=== PATIENT | female | born 1970 | race Caucasian/White ===

== ENCOUNTER 2016-11-17 13:16 | Inpatient (IN) | payer MEDICAID ==
[~2016-11-17 13:16] MED LIST: ARIXTRA10 MG/0.8 SC; ASPIRIN EC325 M1 PO; ASPIRIN325 MG PO; BUDEPRION XL300 MG PO; CLARITIN5 MG; COUMADIN5 MG PO; COUMADIN6 MG PO; DICLOFENAC SODI75 MG PO; DIFLUCAN100 MG PO; DIOVAN HCT 160/1 TA PO; DIOVAN160 M PO; DOXYCYCLINE HY100 MG PO; K-DUR20 ME1 PO; LASIX40 MG PO; LASIX80 MG PO; LEXAPRO20 M1 PO; LEXAPRO20 MG PO; LEXAPRO5 MG; POTASSIUM CHLO10 MEQ; PRENATAL MULTI1 EACH; PRENATAL1 EACH PO; SULFAMYLON453.6 GM TP; WELLBUTRIN; WELLBUTRIN75 M1; WELLBUTRIN75 M1 PO; ZITHROMAX250 MG PO; ZYRTEC10 M1 PO; ZYRTEC10 M7 PO; [UNRECOGNIZED DRUG - OTHER]
[2016-11-17] MEDS ORDERED: NORCO 5-325 TA1 EACH PO (13:58)
[2016-11-17] MEDS ORDERED: DICLOFENAC SODI75 M2 PO (14:00)
[2016-11-17] MEDS ORDERED: LOVENOX60 MG/0.1 SC (14:01)
[2016-11-17] MEDS ORDERED: NYSTATIN15 G1 TP (14:03)
[2016-11-17] MEDS ORDERED: PROTONIX40 M2 PO (14:03)
[2016-11-17] MEDS ORDERED: SENOKOT8.6 M1 PO (14:04)
[2016-11-17] MEDS ORDERED: INVANZ1 GM IV (14:06)
[2016-11-17] MEDS ORDERED: VANCOMYCIN HCL500 MG IV (14:07)
[2016-11-17] MEDS ORDERED: WELLBUTRIN SR150 M2 PO (14:09)
[2016-11-17] MEDS ORDERED: SODIUM CHLOR1 GM/TAB (14:09)
[2016-11-17] MEDS ORDERED: PROVENTIL HFA6.7 G1 IH (14:13)
[2016-11-18 05:39] LABS: BASO % 0.4 % (0-2); EOSINOPHIL ABSOLUTE COUNT 0.2 tho/cmm (0.0-0.7); HCT-HEMATOCRIT 29.6 % (34.0-49.0); HGB-HEMOGLOBIN 8.7 gm/dl (12.0-15.5); IMMATURE GRANULOCYTES ABSOLUTE 0.14 tho/cmm (0-0.03); IMMATURE GRANULOCYTES PERCENT 2.8 % (0-0.3); LYMPH % 17.4 % (20-45); LYMPH ABSOLUTE COUNT 0.9 tho/cmm (0.8-4.5); MCH (MEAN CORPUSCULAR HGB) 26.4 pg (28.0-32.0); MCHC MEAN CORPUSCULAR HGB CONC 29.4 % (32.0-36.0); MCV (MEAN CELL VOLUME) 89.7 fl (82.0-96.0); MEAN PLATELET VOLUME 9.5 cmc (9.4-12.4); MONOCYTE ABSOLUTE COUNT 0.7 tho/cmm (0.0-1.2); NEUTROPHIL ABSOLUTE COUNT 3.2 tho/cmm (1.6-8.0); NEUTROPHIL-AUTOMATED 3.2 tho/cmm (1.6-8.0); NEUTROPHILS % 63.4 % (40-80); PLATELET COUNT 295 tho/cmm (150-450); RED CELL DISTRIBUTION WIDTH 16.3 % (12.4-16.4)
[2016-11-18 06:04] LABS: ALB/GLOB RATIO 0.3 (0.8-2.0); ALKALINE PHOSPHATASE 119 U/L (33-138); ALT/SGPT 23 U/L (12-78); ANION GAP 9 mmol/L (0-20); AST/SGOT 16 U/L (10-40); BILIRUBIN,TOTAL 0.5 mg/dl (0-1.5); BLOOD UREA NITROGEN 12 mg/dl (6-24); CALCIUM 8.2 mg/dl (8.5-10.5); CARBON DIOXIDE-VENOUS 35 mmol/L (22-32); CHLORIDE 100 mmol/l (96-110); CREATININE 1.01 mg/dl (0.50-1.10); GLUCOSE 128 mg/dL (70-110); POTASSIUM 3.5 mmol/L (3.7-5.1); SODIUM 140 mmol/L (135-145); eGFR VALUE FOR BLACK 77 mL/Min
[2016-11-19 05:44] LABS: BASO % 0.2 % (0-2); EOS % 2.6 % (0-7); EOSINOPHIL ABSOLUTE COUNT 0.1 tho/cmm (0.0-0.7); HCT-HEMATOCRIT 30.5 % (34.0-49.0); HGB-HEMOGLOBIN 8.9 gm/dl (12.0-15.5); IMMATURE GRANULOCYTES ABSOLUTE 0.15 tho/cmm (0-0.03); IMMATURE GRANULOCYTES PERCENT 3.5 % (0-0.3); LYMPH % 13.6 % (20-45); LYMPH ABSOLUTE COUNT 0.6 tho/cmm (0.8-4.5); MCH (MEAN CORPUSCULAR HGB) 26.3 pg (28.0-32.0); MCHC MEAN CORPUSCULAR HGB CONC 29.2 % (32.0-36.0); MCV (MEAN CELL VOLUME) 90.2 fl (82.0-96.0); MEAN PLATELET VOLUME 9.5 cmc (9.4-12.4); MONO % 9.4 % (0-12); MONOCYTE ABSOLUTE COUNT 0.4 tho/cmm (0.0-1.2); NEUTROPHILS % 70.7 % (40-80); PLATELET COUNT 314 tho/cmm (150-450); RED BLOOD COUNT 3.38 mil/cmm (4.00-5.20); RED CELL DISTRIBUTION WIDTH 16.5 % (12.4-16.4); WHITE BLOOD COUNT 4.3 tho/cmm (4.0-10.0)
[2016-11-20 05:43] LABS: BASO % 0.1 % (0-2); EOS % 1.7 % (0-7); EOSINOPHIL ABSOLUTE COUNT 0.2 tho/cmm (0.0-0.7); HCT-HEMATOCRIT 32.7 % (34.0-49.0); HGB-HEMOGLOBIN 9.5 gm/dl (12.0-15.5); IMMATURE GRANULOCYTES ABSOLUTE 0.08 tho/cmm (0-0.03); IMMATURE GRANULOCYTES PERCENT 0.8 % (0-0.3); LYMPH % 6.6 % (20-45); LYMPH ABSOLUTE COUNT 0.6 tho/cmm (0.8-4.5); MCH (MEAN CORPUSCULAR HGB) 26.1 pg (28.0-32.0); MCHC MEAN CORPUSCULAR HGB CONC 29.1 % (32.0-36.0); MCV (MEAN CELL VOLUME) 89.8 fl (82.0-96.0); MEAN PLATELET VOLUME 9.4 cmc (9.4-12.4); MONO % 2.6 % (0-12); MONOCYTE ABSOLUTE COUNT 0.3 tho/cmm (0.0-1.2); NEUTROPHIL ABSOLUTE COUNT 8.3 tho/cmm (1.6-8.0); NEUTROPHIL-AUTOMATED 8.3 tho/cmm (1.6-8.0); NEUTROPHILS % 88.2 % (40-80); PLATELET COUNT 305 tho/cmm (150-450); RED BLOOD COUNT 3.64 mil/cmm (4.00-5.20); RED CELL DISTRIBUTION WIDTH 16.5 % (12.4-16.4)
[2016-11-20 05:52] LABS: WHITE BLOOD COUNT 9.5 tho/cmm (4.0-10.0)
[2016-11-20 06:04] LABS: ALB/GLOB RATIO 0.3 (0.8-2.0); ALBUMIN 1.9 g/dl (3.5-5.0); ALKALINE PHOSPHATASE 115 U/L (33-138); ALT/SGPT 22 U/L (12-78); ANION GAP 9 mmol/L (0-20); AST/SGOT 19 U/L (10-40); BILIRUBIN,TOTAL 0.5 mg/dl (0-1.5); BLOOD UREA NITROGEN 12 mg/dl (6-24); C-REACTIVE PROTEIN 13.6 mg/dl (0-0.9); CARBON DIOXIDE-VENOUS 36 mmol/L (22-32); CHLORIDE 101 mmol/l (96-110); CREATINE PHOSPHOKINASE (CPK) 21 U/L (21-215); CREATININE 1.02 mg/dl (0.50-1.10); GLUCOSE 145 mg/dL (70-110); MAGNESIUM 1.9 mg/dl (1.8-2.6); PHOSPHOROUS 3.4 mg/dl (2.5-4.9); POTASSIUM 3.4 mmol/L (3.7-5.1); SODIUM 143 mmol/L (135-145); eGFR VALUE FOR BLACK 76 mL/Min
[2016-11-21 06:11] LABS: C-REACTIVE PROTEIN 17.2 mg/dl (0-0.9)
[2016-11-21] MEDS ORDERED: ALBUTEROL2.5 MG/3 M INH (16:35)
[2016-11-22 07:41] LABS: C-REACTIVE PROTEIN 13.6 mg/dl (0-0.9)
[2016-11-23 07:26] LABS: BASO % 0.1 % (0-2); HCT-HEMATOCRIT 34.2 % (34.0-49.0); HGB-HEMOGLOBIN 10.1 gm/dl (12.0-15.5); IMMATURE GRANULOCYTES ABSOLUTE 0.12 tho/cmm (0-0.03); IMMATURE GRANULOCYTES PERCENT 0.8 % (0-0.3); LYMPH % 5.1 % (20-45); LYMPH ABSOLUTE COUNT 0.7 tho/cmm (0.8-4.5); MCH (MEAN CORPUSCULAR HGB) 26.2 pg (28.0-32.0); MCHC MEAN CORPUSCULAR HGB CONC 29.5 % (32.0-36.0); MCV (MEAN CELL VOLUME) 88.6 fl (82.0-96.0); MEAN PLATELET VOLUME 9.5 cmc (9.4-12.4); MONO % 4.6 % (0-12); MONOCYTE ABSOLUTE COUNT 0.7 tho/cmm (0.0-1.2); NEUTROPHIL ABSOLUTE COUNT 12.9 tho/cmm (1.6-8.0); NEUTROPHIL-AUTOMATED 12.9 tho/cmm (1.6-8.0); NEUTROPHILS % 89.4 % (40-80); PLATELET COUNT 322 tho/cmm (150-450); RED BLOOD COUNT 3.86 mil/cmm (4.00-5.20); RED CELL DISTRIBUTION WIDTH 16.9 % (12.4-16.4); WHITE BLOOD COUNT 14.4 tho/cmm (4.0-10.0)
[2016-11-23 08:06] LABS: ANION GAP 10 mmol/L (0-20); BLOOD UREA NITROGEN 21 mg/dl (6-24); CALCIUM 8.1 mg/dl (8.5-10.5); CARBON DIOXIDE-VENOUS 36 mmol/L (22-32); CHLORIDE 102 mmol/l (96-110); CREATININE 1.09 mg/dl (0.50-1.10); GLUCOSE 237 mg/dL (70-110); POTASSIUM 4.1 mmol/L (3.7-5.1); SODIUM 144 mmol/L (135-145); eGFR VALUE FOR BLACK 70 mL/Min
[2016-11-25 05:43] LABS: ANION GAP 11 mmol/L (0-20); BASO % 0.1 % (0-2); BLOOD UREA NITROGEN 25 mg/dl (6-24); CARBON DIOXIDE-VENOUS 36 mmol/L (22-32); CHLORIDE 96 mmol/l (96-110); GLUCOSE 242 mg/dL (70-110); HCT-HEMATOCRIT 30.6 % (34.0-49.0); HGB-HEMOGLOBIN 9.2 gm/dl (12.0-15.5); IMMATURE GRANULOCYTES ABSOLUTE 0.15 tho/cmm (0-0.03); IMMATURE GRANULOCYTES PERCENT 1.7 % (0-0.3); LYMPH % 9.8 % (20-45); LYMPH ABSOLUTE COUNT 0.9 tho/cmm (0.8-4.5); MCH (MEAN CORPUSCULAR HGB) 26.2 pg (28.0-32.0); MCHC MEAN CORPUSCULAR HGB CONC 30.1 % (32.0-36.0); MCV (MEAN CELL VOLUME) 87.2 fl (82.0-96.0); MEAN PLATELET VOLUME 9.4 cmc (9.4-12.4); MONO % 6.7 % (0-12); MONOCYTE ABSOLUTE COUNT 0.6 tho/cmm (0.0-1.2); NEUTROPHIL ABSOLUTE COUNT 7.1 tho/cmm (1.6-8.0); NEUTROPHIL-AUTOMATED 7.1 tho/cmm (1.6-8.0); NEUTROPHILS % 81.7 % (40-80); PLATELET COUNT 298 tho/cmm (150-450); POTASSIUM 4.2 mmol/L (3.7-5.1); RED BLOOD COUNT 3.51 mil/cmm (4.00-5.20); RED CELL DISTRIBUTION WIDTH 16.9 % (12.4-16.4); SODIUM 139 mmol/L (135-145); WHITE BLOOD COUNT 8.6 tho/cmm (4.0-10.0); eGFR VALUE FOR BLACK 69 mL/Min
[2016-11-27] MEDS ORDERED: BENADRYL ALLERG25 M1 PO (13:52)
[2016-11-27] MEDS ORDERED: PREDNISONE10 M1 PO (14:01)
[2016-11-27] MEDS ORDERED: MUPIROCIN22 G2 TOP (14:03)
[2016-11-27] MEDS ORDERED: AQUAPHOR99 GM TOP (14:05)
== END 2016-11-28 11:02 | DRG 603 ==
LOC: 5EB 13:16
PROVIDERS: Hospitalist; Internal Medicine; Internal Medicine Infectious Disease; ADMIT Family Medicine
PROC: 0HBKXZX Excision of Right Lower Leg Skin, External Approach, Diagnostic (ICD-10-PCS; principal; 2016-11-27)
PROC: 05HY33Z Insertion of Infusion Device into Upper Vein, Percutaneous Approach (ICD-10-PCS; 2016-11-27)
DX: L03.115 Cellulitis of right lower limb (principal); E44.0 Moderate protein-calorie malnutrition; L23.9 Allergic contact dermatitis, unspecified cause; R73.9 Hyperglycemia, unspecified; T38.0X5A Adverse effect of glucocorticoids and synthetic analogues, initial encounter; D64.9 Anemia, unspecified; E66.01 Morbid (severe) obesity due to excess calories
CPT/HCPCS: C1751; J0878; J1200; J1335; J1650; J1652; J1815; J2930; J2997; J3370; J7050; J7512